=== PATIENT | male | born 1960 | race Two or more races ===

== ENCOUNTER 2018-10-28 12:59 | Day surgery (SDC) | payer MEDICARE ==
[2018-10-25 14:26] LABS: ALBUMIN 3.1 g/dL (3.4-5.0); ANION GAP 6 mmol/L (5-15); CALCIUM 9.1 mg/dL (8.5-10.1); CHLORIDE 107 mmol/L (98-107)
[2018-10-25 14:29] LABS: ALANINE AMINOTRANSFERASE 59 U/L (12-78); ALKALINE PHOSPHATASE 91 U/L (45-117); BILIRUBIN,TOTAL 0.5 mg/dL (0.2-1.0); TOTAL PROTEIN 7.8 g/dL (6.4-8.2)
[~2018-10-28] VITALS: Ht 167.6 cm; Wt 88.4 kg
[~2018-10-28 12:59] MED LIST: AMLO1CAP15 PO
[2018-10-28 13:28] VITALS: BP 115/79
[2018-10-28] MEDS ORDERED: LACTATED RINGERS 1,000 ML IV SCH (13:32)
[2018-10-28] MEDS ORDERED: CHLORHEXIDINE 15 ML UDC ONE (14:31)
[2018-10-28] MEDS ORDERED: PROPOFOL 10 MG/ML, 20ML ONE (15:56)
[2018-10-28] MEDS ORDERED: MIDAZOLAM 1 MG/ML, 2ML ONE (15:59)
[2018-10-28] MEDS ORDERED: MEPERIDINE/PF 25MG/0.5ML IVPush PRN (16:30)
[2018-10-28] MEDS ORDERED: ACETAMINOPHEN 325 MG TABLET PO PRN (16:30)
[2018-10-28] MEDS ORDERED: FENTANYL PF 100 MCG/2ML IV PRN (16:30)
== END 2018-10-28 17:55 | disposition home or self-care (01) ==
LOC: OUT 12:59 → EDSTATUS 15:00 → OUT 17:55
PROVIDERS: ATTEND Internal Medicine Gastroenterology
DX: C15.9 Malignant neoplasm of esophagus, unspecified (principal); K22.2 Esophageal obstruction; I10 Essential (primary) hypertension; F17.210 Nicotine dependence, cigarettes, uncomplicated; Z98.890 Other specified postprocedural states
CPT/HCPCS: 36415; 43242; 80053; 88305; J2250; J2704; J7120